=== PATIENT | female | born 1950 | race Caucasian/White ===

== ENCOUNTER 2020-01-17 13:14 | Outpatient (CLI) | payer MEDICARE, SELFPAY ==
--- NOTE | ~2020-01-17 | XR_ITS ---
EXAMINATION: XR chest 2V DATE: 01/17/2020 13:34 INDICATION: Cough. TECHNIQUE: Frontal and lateral views of the chest were obtained. COMPARISON: Chest 2 views 04/20/2017 FINDINGS: There is no pneumonia, pleural effusion, or pneumothorax. Cardiomegaly is noted. There is a right chest pacer with leads in right atrium, right ventricle, and coronary sinus. There are 2 retai christian leads in right ventricle. IMPRESSION: 1. Cardiomegaly. Reviewed, dictated and finalized at location B. VASCULAR TECH IMPRESSION: 1. Cardiomegaly.
== END 2020-01-17 13:15 | disposition home or self-care (01) ==
LOC: ANHIMG 13:22
PROVIDERS: PCP Family Medicine; Visit Provider Family Medicine
DX: R05 Cough (principal); I51.7 Cardiomegaly
CPT/HCPCS: 71046

== ENCOUNTER 2020-01-31 13:10 | Outpatient (CLI) | payer MEDICARE, SELFPAY ==
--- NOTE | 2020-01-31 | ECG_ITS ---
Measurements Intervals [place] Rate: 89 P: -74 LA: 182 QRS: -64 QRSD: 169 T: -40 QT: 425 QTc: 518 Interpretive Statements ELECTRONIC ATRIAL PACEMAKER ELECTRONIC VENTRICULAR PACEMAKER NO FURTHER INTERPRETATION IS POSSIBLE ATYPICAL ECG Electronically Signed On 01-31-2020 15:20:17 MOVERS by Heriberto Montes D.O.
== END 2020-01-31 13:11 | disposition home or self-care (01) ==
PROVIDERS: PCP Family Medicine
DX: I42.0 Dilated cardiomyopathy (principal); I44.2 Atrioventricular block, complete; I50.42 Chronic combined systolic (congestive) and diastolic (congestive) heart failure; Z95.0 Presence of cardiac pacemaker
CPT/HCPCS: 93005

== ENCOUNTER 2020-07-18 15:42 | Outpatient (CLI) | payer MEDICARE, SELFPAY ==
--- NOTE | 2020-07-18 | ECG_ITS ---
Measurements Intervals [place] Rate: 82 P: -64 MD: 173 QRS: 255 QRSD: 186 T: 97 QT: 449 QTc: 525 Interpretive Statements ELECTRONIC ATRIAL PACEMAKER ELECTRONIC VENTRICULAR PACEMAKER NO FURTHER INTERPRETATION IS POSSIBLE ATYPICAL ECG Electronically Signed On 07-18-2020 16:26:17 CDT by Heriberto Montes D.O.
== END 2020-07-18 15:43 | disposition home or self-care (01) ==
PROVIDERS: PCP Family Medicine
DX: R94.31 Abnormal electrocardiogram [ECG] [EKG] (principal); I42.0 Dilated cardiomyopathy; I44.2 Atrioventricular block, complete; I50.42 Chronic combined systolic (congestive) and diastolic (congestive) heart failure
CPT/HCPCS: 93005

== ENCOUNTER → 2020-11-15 14:00 | Outpatient (CLI) | payer MEDICARE, SELFPAY ==
--- NOTE | ~2020-11-15 | US_ITS ---
EXAMINATION: US renal BI DATE: 11/15/2020 14:18 INDICATION: Chronic kidney disease, stage IIIB. Other microscopic hematuria. TECHNIQUE: Multiple ultrasound grayscale images of the kidneys were obtained. COMPARISON: None. FINDINGS: The right kidney measures 9.4 x 4.9 x 4.3 cm. The left kidney measures 8.3 x 3.9 x 3.3 cm. The kidney s demonstrate normal parenchymal echogenicity. There is no hydronephrosis. The bladder is normal. IMPRESSION: 1. Mild atrophy of left kidney. No hydronephrosis. Reviewed, dictated and finalized at location A.
== END ==
PROVIDERS: PCP Family Medicine; Visit Provider Internal Medicine Nephrology
DX: N18.32 Chronic kidney disease, stage 3b (principal); R31.29 Other microscopic hematuria
CPT/HCPCS: 76775

== ENCOUNTER 2021-06-04 15:07 | Outpatient (CLI) | payer MEDICARE, SELFPAY ==
--- NOTE | ~2021-06-04 | XR_ITS ---
EXAMINATION: XR_RIBSBI_CR INDICATION: Bilateral rib pain TECHNIQUE: 3 views of the bilateral ribs were obtained. COMPARISON: None. FINDINGS: There is a healed fracture at the anterolateral aspect of the right ninth rib. No acute fra cture is identified. The lungs are free of acute opacities. There is no pleural effusion or pneumotho rax. Cardiomegaly is noted. A cardiac pacemaker of the right chest wall ends with leads in expected l ocations. There is at least one orphaned or detached lead. Bilateral breast implants are noted. IMPRESSION: 1. Healed fracture at the anterolateral aspect of the right ninth rib. Reviewed, dictated and finalized at location F.
== END 2021-06-04 15:08 | disposition home or self-care (01) ==
PROVIDERS: PCP Family Medicine; Visit Provider Family Medicine
DX: R07.81 Pleurodynia (principal)
CPT/HCPCS: 71110

== ENCOUNTER 2023-11-08 10:31 | Emergency (ER) | payer MEDICARE, SELFPAY ==
--- NOTE | ~2023-11-08 | XR_ITS ---
XR foot LT min 3V Ordering provider: Smiley Ricardo NP History: . pain across distal l mtp jt areas s/p fall 4 days ago . Comparison: None. FINDINGS: BONES: No acute fracture or dislocation. Calcaneus spur. JOINT SPACES: Narrowing of the proximal and distal interphalangeal joint. No tarsal coalition. SOFT TISSUES: Normal. IMPRESSION: No acute osseous abnormality left foot. Reviewed, dictated and finalized at location A.
--- NOTE | 2023-11-08 10:34 | ED.LOWEXIN ---
HPI - Extremity Injury (Lower) General Chief Complaint: Extremity Injury, Lower Stated Complaint: left foot hurts,swollen after fall Time Seen by Provider: 11/08/23 11:22 Source: patient and RN notes reviewed Mode of arrival: ambulatory Limitations: no limitations History of Present Illness HPI Narrative: 73-year-old female presents with concern for left foot pain. Reports she fell on . Reports history of breaking her foot with a similar injury in the past. She reports she has used ice and Tylenol with some relief. She reports it aches at rest, mid foot hurts worse with weight-bearing, flexing the ankle and toes complaint: foot injury Related Data Home Medications Medication Instructions Recorded Confirmed furosemide 40 mg tablet 40 mg PO DAILY 11/08/23 11/08/23 zolpidem 10 mg tablet 10 mg PO HS PRN Sleep 11/08/23 11/08/23 Allergies Allergy/AdvReac Type Severity Reaction Status Date / Time adhesive Allergy Unknown Unknown Verified 11/08/23 11:01 adhesive tape Allergy Unknown Unknown Verified 11/08/23 11:01 Sulfa (Sulfonamide Allergy Unknown Unknown Verified 11/08/23 11:01 Antibiotics) iohexol Allergy Hives Verified 11/08/23 11:01 [From contrast - CT, X-RAY] red dye Allergy Hives Verified 11/08/23 11:01 Review of Systems Review of Systems: CONSTITUTIONAL: Denies malaise, chills, sweats, or fever. SKIN: Denies rash or itching, open skin, laceration, abrasion, redness, warmth, swelling. MUSCULOSKELETAL: Reports left foot pain NEUROLOGIC: Denies numbness, weakness All systems reviewed & are unremarkable except as noted in HPI and below PMFSH Past Medical History Medical History (Updated 11/08/23 @ 11:31 by Smiley Ricardo NP) Anxiety Atrial flutter 06/2001 Chronic atrial fibrillation Chronic congestive heart failure CKD (chronic kidney disease) stage 3, GFR 30-59 ml/min Dyslipidemia Essential (primary) hypertension Hx of cardiac pacemaker Hypothyroidism (acquired) Pacemaker 10/10 Surgical History Surgical History (System 03/26/21 @ 13:56 by Trini Jacinto) History of automatic internal cardiac defibrillator (AICD) Family History Family History (System 03/26/21 @ 13:56 by Trini Jacinto) Other Family history of malignant neoplasm of bone Family history of malignant neoplasm of brain Family history of primary malignant neoplasm of liver Social History Social History (Updated 03/18/22 @ 11:41 by Alana Quintero MA) Smoking status: Never smoker Second hand tobacco smoke exposure: No Alcohol intake: current Alcohol use details: consumes 2 drinks of beer or liquor occasionally Substance use: never Substance use type: does not use Lack of Transportation: No Lack of Food: Never True Current Housing: I Have Housing Concerned About Future Housing: No Difficulty Paying Gas/Electric Bills: No Difficulty Paying for Meds: No Currently Unemployed: No Gender identity (if verbalized by the patient): Female Comments At time of signature, agree with nursing past medical, surgical, social and family history. There is no relevant family history pertinent to the presenting complaint Exam Narrative: GENERAL: Well-appearing, well-nourished, and in no acute distress. HEAD: Normocephalic, atraumatic. EYES: PERRLA, conjunctivae clear NECK: Supple. CHEST: Speaks in full sentences. No respiratory distress. HEART: Regular rate and rhythm. Normal and equal peripheral pulses. EXTREMITIES: Left foot, digits have grossly normal strength and sensation, normal range of motion. No edema or ecchymosis. Normal sensation with sensitivity to light touch and pain. No point tenderness. No open wounds, no skin tenting, no devitalized tissue or atrophy, no trophic changes, no obvious deformity, alignment normal, nearby joints and structures intact. Distal pulses palpable and equal bilaterally, skin warm, dry, pink. Capillary refill less than 3 seconds. SKIN: Warm,
[2023-11-08 10:48] VITALS: BP 102/56; PULSE 85; RESP 16; TEMP 36.2; O2SAT 96
[2023-11-08 11:27] VITALS: BP 102/56; PULSE 85; TEMP 36.2
== END 2023-11-08 11:50 | disposition home or self-care (01) ==
PROVIDERS: Emergency Provider Nurse Practitioner
DX: S93.602A Unspecified sprain of left foot, initial encounter (principal); W19.XXXA Unspecified fall, initial encounter; I48.92 Unspecified atrial flutter; I48.91 Unspecified atrial fibrillation; I48.20 Chronic atrial fibrillation, unspecified; I13.0 Hypertensive heart and chronic kidney disease with heart failure and stage 1 through stage 4 chronic kidney disease, or unspecified chronic kidney disease; N18.30 Chronic kidney disease, stage 3 unspecified; I50.9 Heart failure, unspecified; E78.5 Hyperlipidemia, unspecified; E03.9 Hypothyroidism, unspecified; Z95.810 Presence of automatic (implantable) cardiac defibrillator
CPT/HCPCS: 73630; 99213; G0463